=== PATIENT | female | born 1985 | race Caucasian/White ===

== ENCOUNTER 2018-05-06 21:42 | Emergency (ER) | payer MEDICAID ==
[2018-05-06] MEDS: ONDANSETRON HCL IV 4 MG/2 ML VIAL IV ONE (22:25)
[2018-05-06] MEDS: 0.9 % SODIUM CHLORIDE 1,000 ML BAG IV ONE (22:25)
[2018-05-06 22:30] LABS: URINE APPEARANCE CLEAR; URINE BILIRUBIN NEGATIVE (NEGATIVE); URINE BLOOD NEGATIVE (NEGATIVE); URINE COLOR YELLOW; URINE GLUCOSE (UA) NEGATIVE (NEGATIVE); URINE KETONE NEGATIVE (NEGATIVE); URINE LEUKOCYTE ESTERASE NEGATIVE (NEGATIVE); URINE NITRITE NEGATIVE (NEGATIVE); URINE PROTEIN NEGATIVE (NEGATIVE); URINE UROBILINOGEN 0.2 E.U./dL (0.20 - 1.00)
[2018-05-06 22:31] LABS: HCG,QUALITATIVE URINE NEGATIVE (NEGATIVE)
[2018-05-06 22:58] LABS: BLOOD UREA NITROGEN 11 mg/dL (6-20); CREATININE 0.6 mg/dL (0.5-0.9); EST GLOMERULAR FILTRATION RATE > 60 mL/min
[2018-05-06 22:59] LABS: TOTAL PROTEIN 7.6 g/dL (6.6-8.7)
[2018-05-06 23:01] LABS: BASO % 0.1 % (0-6); EOS % 0.9 % (0-6); GRAN % 78.7 % (47-80); HEMATOCRIT 34.4 % (35.0-47.0); HEMOGLOBIN 11.2 gm/dl (11.6-16.0); MEAN CELL VOLUME 87.5 fl (81-97); MEAN CORPUSCULAR HGB CONC 32.6 g/dl (32-36); MONO % 5.3 % (0-9); PLATELET COUNT 284 K/uL (130-400); RED BLOOD COUNT 3.93 M/uL (3.80-5.40); RED CELL DISTRIBUTION WIDTH 13.4 % (11.5-14.5); WHITE BLOOD COUNT W/O DIFF 7.7 K/uL (4.2-12.2)
[2018-05-06 23:01] LABS: GLUCOSE,RANDOM 90 mg/dL (74-109)
[2018-05-06 23:02] LABS: MEAN CORPUSCULAR HEMOGLOBIN 28.4 pg (27-33)
[2018-05-06 23:03] LABS: ALT/SGPT 13 U/L (<33); AST/SGOT 20 U/L (10.0-35.0)
[2018-05-06 23:04] LABS: ALB/GLOB RATIO 1.5 (1.1-1.8); ALBUMIN 4.5 g/dL (4.0-5.0); ALKALINE PHOSPHATASE 84 U/L (35-104); LIPASE 27 U/L (13-60)
--- NOTE | 2018-05-06 23:54 | Emergency Department Record ---
History of Present Illness - General Chief complaint: Nausea, Vomiting, Diarrhea Stated complaint: VOMITING AND DIARRHEA Time Seen by Provider: 05/06/18 22:18 Source: Patient Mode of Arrival: Ambulatory - History of Present Illness Onset/Timin -: Days(s) Description of Vomiting: Bilious Severity scale (1-10): 5 Quality: Aching, Cramping Consistency: Constant Improves with: None Worsens with: None Context: Sick contacts Associated Symptoms: Nausea/vomiting - Related Data Previous Rx's Medication Instructions Recorded Ondansetron [Zofran Odt] 4 mg PO Q8H #7 tab.rapdis 05/06/18 Allergies Allergy/AdvReac Type Severity Reaction Status Date / Time No Known Drug Allergies Allergy Verified 05/06/18 22:09 Travel Screening - Travel/Exposure Within Last 30 Days Have you traveled within the last 30 days?: No Past Medical History - SOCIAL HISTORY Smoking Status: Never smoker Alcohol Use: None Drug Use: None - RESPIRATORY Hx Respiratory Disorders: No - CARDIOVASCULAR Hx Cardio Disorders: No - NEURO Hx Neuro Disorders: No - GI Hx GI Disorders: No - Hx Genitourinary Disorders: No - ENDOCRINE Hx Endocrine Disorders: No - MUSCULOSKELETAL Hx Musculoskeletal Disorders: No - PSYCH Hx Psych Problems: No - HEMATOLOGY/ONCOLOGY Hx Hematology/Oncology Disorders: No Family Medical History Any Significant Family History?: No Course Vital Signs 05/06/18 05/06/18 22:09 23:20 Temperature 98.4 F 98.3 F Pulse Rate 86 Pulse Rate [ 96 H Pulse Ox Probe] Respiratory 20 12 Rate Blood Pressure 112/73 Blood Pressure 95/59 [Left Arm] Pulse Ox 98 99 - Reevaluation(s) Reevaluation #1: 05/06/18 23:48 pt feels better Medical Decision Making - Lab Data Result diagrams: 05/06/18 22:58 05/06/18 22:10 Lab Results 05/06/18 05/06/18 05/06/18 Range/Units 22:10 22:10 22:58 WBC 7.7 (4.2-12.2) K/uL RBC 3.93 (3.80-5.40) M/uL Hgb 11.2 L (11.6-16.0) gm/dl Hct 34.4 L (35.0-47.0) % MCV 87.5 (81-97) fl MCH 28.4 (27-33) pg MCHC 32.6 (32-36) g/dl RDW 13.4 (11.5-14.5) % Plt Count 284 (130-400) K/uL MPV 9.0 (7.4-10.4) fl Gran % 78.7 (47-80) % Lymphocytes % 15.0 L (16-45) % Monocytes % 5.3 (0-9) % Eosinophils % 0.9 (0-6) % Basophils % 0.1 (0-6) % Sodium 136 (136-145) mmol/L Potassium 3.5 (3.4-4.5) mmol/L Chloride 100 (98-107) mmol/L Carbon Dioxide 20.0 L (22-29) mmol/L Anion Gap 16.0 (7-16) BUN 11 (6-20) mg/dL Creatinine 0.6 (0.5-0.9) mg/dL Estimated GFR > 60 mL/min Random Glucose 90 (74-109) mg/dL Calcium 8.5 L (8.6-10.0) mg/dL Total Bilirubin 0.60 (0.2-1.0) mg/dL AST 20 (10.0-35.0) U/L ALT 13 (<33) U/L Alkaline Phosphatase 84 (35-104) U/L Total Protein 7.6 (6.6-8.7) g/dL Albumin 4.5 (4.0-5.0) g/dL Globulin 3.1 (1.4-4.8) gm/dL Albumin/Globulin Ratio 1.5 (1.1-1.8) Lipase 27 (13-60) U/L Urine Color Yellow Urine Appearance Clear Urine pH 6.0 (5.0-8.0) Ur Specific [place] >= 1.030 (1.002-1.030) Urine Protein Negative (NEGATIVE) Urine Glucose (UA) Negative (NEGATIVE) Urine Ketones Negative (NEGATIVE) Urine Blood Negative (NEGATIVE) Urine Nitrite Negative (NEGATIVE) Urine Bilirubin Negative (NEGATIVE) Urine Urobilinogen 0.2 (0.20 - 1.00) E.U./dL Ur Leukocyte Esterase Negative (NEGATIVE) Urine HCG, Qual Negative (NEGATIVE) Disposition Disposition: Discharge Clinical Impression: Nausea & vomiting Qualifiers: Vomiting type: unspecified Vomiting Intractability: non-intractable Qualified Code(s): R11.2 - Nausea with vomiting, unspecified Diarrhea Qualifiers: Diarrhea type: infectious Qualified Code(s): A09 - Infectious gastroenteritis and colitis, unspecified Disposition: Home, Self-Care Condition: (1) Good Instructions: Acute Nausea and Vomiting (ED), Acute Diarrhea (ED) Additional Instructions: follow up with family doctor. return sooner if worse. push fluids Prescriptions: Ondansetron [Zofran Odt] 4 mg PO Q8H #7 tab.rapdis Forms: Patient Portal Access, Return to Work/School Quality - Quality Measures Quality Measures: N/A - Blood Pressure Screening Does Patient Have Any of the Following: No Blood Pressure Classification: Normal BP Reading Systolic Measurement: 112 Diastolic Measurement: 73 Screening for High Blood Pressure: < Normal BP, F/U Not Required > [G8783]
== END 2018-05-07 00:08 | disposition home or self-care (01) ==
LOC: ER 21:42
DX: A09 Infectious gastroenteritis and colitis, unspecified (principal); R11.2 Nausea with vomiting, unspecified
CPT/HCPCS: 99284 ×2; 96374; 83690; 85025; 80053; 81003; 81025; J2405; J7030

== ENCOUNTER 2018-12-02 10:45 | Emergency (ER) | payer MEDICAID ==
--- NOTE | 2018-12-02 11:20 | Emergency Department Record ---
History of Present Illness - General Chief complaint: Nausea, Vomiting, Diarrhea Stated complaint: GETS SICK AFTER EATING/LOST WEIGHT Time Seen by Provider: 12/02/18 11:00 Source: Patient Mode of Arrival: Ambulatory Limitations: No limitations - History of Present Illness Initial comments: The patient is here due to not feeling well for about 3 months. She has felt that she has low energy and has had frequent loose stools only after eating for months. The patient denies any nausea, vomiting, fever, chills, AP, back pain, dysuria, or rashes. She also denies any blood in the stool. The patient additionally states her urine smells like sulfur at times. The patient has not seen her PCP for this due to the PCP being [facility]. complaint: Diarrhea Onset/Timin -: Month(s) Severity: Mild Severity scale (1-10): 1 Quality: Aching Consistency: Constant Improves with: None Worsens with: Eating - Related Data Home Medications Medication Instructions Recorded Confirmed Last Taken Cholecalciferol (Vitamin D3) 4,000 unit PO BID 12/02/18 12/02/18 1 Day Ago [Vitamin D3] ~12/01/18 Cyanocobalamin (Vitamin B-12) 5,000 mcg PO BID 12/02/18 12/02/18 1 Day Ago [Vitamin B-12] ~12/01/18 Allergies Allergy/AdvReac Type Severity Reaction Status Date / Time No Known Drug Allergies Allergy Verified 12/02/18 10:58 Travel Screening - Travel/Exposure Within Last 30 Days Have you traveled within the last 30 days?: No - Travel/Exposure Within Last Year Have you traveled outside the [place] in the last year?: No - Additonal Travel Details Have you been exposed to anyone with a communicable illness?: No - Travel Symptoms Symptom Screening: None Review of Systems Constitutional: Reports: Malaise. Denies: Chills, Fever Eyes: Denies: Eye discharge ENT: Denies: Congestion, Other Respiratory: Denies: Cough, Dyspnea Cardiovascular: Denies: Arrhythmia Endocrine: Reports: Fatigue Past Medical History - SOCIAL HISTORY Smoking Status: Never smoker Alcohol Use: None Drug Use: None - RESPIRATORY Hx Respiratory Disorders: No - CARDIOVASCULAR Hx Cardio Disorders: No - NEURO Hx Neuro Disorders: No - GI Hx GI Disorders: No - Hx Genitourinary Disorders: No - ENDOCRINE Hx Endocrine Disorders: No - MUSCULOSKELETAL Hx Musculoskeletal Disorders: No - PSYCH Hx Psych Problems: No - HEMATOLOGY/ONCOLOGY Hx Hematology/Oncology Disorders: No Family Medical History Any Significant Family History?: Yes Family Hx Comment (NOT TO BE USED IN PLACE OF ITEMS BELOW): Mother with GI issues. Physical Exam - General General Appearance: Alert, Oriented x3, Cooperative, No acute distress - Head Head exam: Atraumatic, Normocephalic, Normal inspection - Eye Eye exam: Normal appearance, PERRL - ENT Throat exam: Normal inspection. negative: Tonsillar erythema, Tonsillar exudate - Neck Neck exam: Normal inspection, Full ROM. negative: Tenderness - Respiratory Respiratory exam: Normal lung sounds bilaterally. negative: Respiratory distress - Cardiovascular Cardiovascular Exam: Regular rate, Normal rhythm, Normal heart sounds - GI/Abdominal GI/Abdominal exam: Soft, Normal bowel sounds. negative: Distended, Guarding, Hernia, Rebound, Rigid, Tenderness (The abdomen is very soft and nontender in all 4 quads.) - Extremities Extremities exam: Normal inspection, Full ROM, Normal capillary refill. negative: Tenderness - Neurological Neurological exam: Alert, Normal gait. negative: Abnormal gait, Motor sensory deficit Course Vital Signs 12/02/18 10:50 Temperature 98.7 F Pulse Rate 57 L Respiratory 18 Rate Blood Pressure 124/78 Pulse Ox 100 - Reevaluation(s) Reevaluation #1: The patient is doing very well at this time. She is resting comfortably and denies any pain or discomfort. I did explain to her that her workup has been normal here but she will need to see a PCP for further evaluation. 12/02/18 12:09 Medical Decision Making - Lab Data Result diagrams: 12/02/18 11:27 12/02/18 11:27 Disposition Disposition: Discharge Clinical Impression: Diarrhea Qualifiers: Diarrhea type: unspecified type Qualified Code(s): R19.7 - Diarrhea, un specified Disposition: Home, Self-Care Condition: (2) Stable Instructions: Chronic Diarrhea (ED) Additional Instructions: Please see a family doctor for further evaluation. Eat a very bland diet and please drink plenty of fluids. Return to the ER for any worsening symptoms. Forms: Patient Portal Access Time of Disposition: 12:11 Quality - Quality Measures Quality Measures: N/A - Blood Pressure Screening View Details: Yes Does Patient Have Any of the Following: No Blood Pressure Classification: Pre-Hypertensive BP Reading Systolic Measurement: 124 Diastolic Measurement: 78 Screening for High Blood Pressure: < Pre-Hypertensive BP, F/U Documented > [G8950] Pre-Hypertensive Follow-up Interventions: Referral to alternative/primary care provider.
[2018-12-02 11:32] LABS: ABSOLUTE NEUTROPHIL COUNT 5.95; BASO % 0.2 % (0-6); EOS % 0.9 % (0-6); GRAN % 68.9 % (47-80); HEMATOCRIT 39.9 % (35.0-47.0); HEMOGLOBIN 12.7 gm/dl (11.6-16.0); LYMPH % 23.7 % (16-45); MEAN CELL VOLUME 88.7 fl (81-97); MEAN CORPUSCULAR HEMOGLOBIN 28.2 pg (27-33); MEAN CORPUSCULAR HGB CONC 31.8 g/dl (32-36); MEAN PLATELET VOLUME 9.2 fl (7.4-10.4); MONO % 6.3 % (0-9); PLATELET COUNT 335 K/uL (130-400); RED CELL DISTRIBUTION WIDTH 13.7 % (11.5-14.5); WHITE BLOOD COUNT W/O DIFF 8.6 K/uL (4.2-12.2)
[2018-12-02 11:33] LABS: URINE APPEARANCE CLEAR; URINE BILIRUBIN NEGATIVE (NEGATIVE); URINE BLOOD NEGATIVE (NEGATIVE); URINE COLOR YELLOW; URINE GLUCOSE (UA) NEGATIVE (NEGATIVE); URINE KETONE 15 mg/dL (NEGATIVE); URINE LEUKOCYTE ESTERASE NEGATIVE (NEGATIVE); URINE NITRITE NEGATIVE (NEGATIVE); URINE PROTEIN NEGATIVE (NEGATIVE)
[2018-12-02 11:35] LABS: HCG,QUALITATIVE URINE NEGATIVE (NEGATIVE)
[2018-12-02 11:47] LABS: BLOOD UREA NITROGEN 10 mg/dL (6-20); CREATININE 0.5 mg/dL (0.5-0.9); EST GLOMERULAR FILTRATION RATE > 60 mL/min
[2018-12-02 11:48] LABS: TOTAL PROTEIN 7.4 g/dL (6.6-8.7)
[2018-12-02 11:50] LABS: GLUCOSE,RANDOM 78 mg/dL (74-109)
[2018-12-02 11:52] LABS: ALT/SGPT 14 U/L (<33)
[2018-12-02 11:53] LABS: ALB/GLOB RATIO 1.6 (1.1-1.8); ALBUMIN 4.5 g/dL (4.0-5.0); ALKALINE PHOSPHATASE 65 U/L (35-104); AST/SGOT 19 U/L (10.0-35.0)
== END 2018-12-02 12:19 | disposition home or self-care (01) ==
LOC: ER 10:45
DX: R19.7 Diarrhea, unspecified (principal); R11.2 Nausea with vomiting, unspecified; R82.90 Unspecified abnormal findings in urine
CPT/HCPCS: 80053; 81003; 81025; 82272; 85025; 86140; 89055; 99283

== ENCOUNTER 2019-01-25 03:17 | Emergency (ER) | payer MEDICAID ==
[2019-01-25] MEDS ORDERED: AMOXICILLIN 500MG CAPSULE PO ONE (03:44)
--- NOTE | 2019-01-25 03:50 | Emergency Department Record ---
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 Local pain to the ear without drainage. No fever. Feels the hearing in the ear is muffled. Pt also states her last normal period was in November. Thinks she is . Pt has 7 children. No vaginal bleeding or abd pain. Onset/Timin -: Days(s) Location: L ear Severity: Mild, Moderate Severity scale (1-10): 6 Quality: Dull Consistency: Constant, Getting worse Improves with: None Worsens with: None Context- Ear: Other Associated Symptoms: Hearing loss - Related Data Previous Rx's Medication Instructions Recorded Amoxicillin 1,000 mg PO BID 7 Days #28 capsule 01/25/19 Allergies Allergy/AdvReac Type Severity Reaction Status Date / Time No Known Drug Allergies Allergy Verified 01/25/19 03:34 Travel Screening - Travel/Exposure Within Last 30 Days Have you traveled within the last 30 days?: No - Travel/Exposure Within Last Year Have you traveled outside the [place] in the last year?: No - Additonal Travel Details Have you been exposed to anyone with a communicable illness?: No Review of Systems Constitutional: Denies: Chills, Fever Eyes: Denies: Eye pain, Photophobia ENT: Reports: As per HPI, Ear pain. Denies: Congestion Respiratory: Denies: Cough, Dyspnea Cardiovascular: Reports: Arrhythmia Endocrine: Denies: Fatigue Gastrointestinal: Denies: Abdominal pain, Diarrhea, Nausea, Vomiting Genitourinary: Reports: As per HPI, Abnormal menses Neurological: Denies: Confusion, Headache Psychiatric: Denies: Anxiety Past Medical History - SOCIAL HISTORY Smoking Status: Never smoker Alcohol Use: None - RESPIRATORY Hx Respiratory Disorders: No - CARDIOVASCULAR Hx Cardio Disorders: No - NEURO Hx Neuro Disorders: No - GI Hx GI Disorders: No - Hx Genitourinary Disorders: No - ENDOCRINE Hx Endocrine Disorders: No - MUSCULOSKELETAL Hx Musculoskeletal Disorders: No - PSYCH Hx Psych Problems: No - HEMATOLOGY/ONCOLOGY Hx Hematology/Oncology Disorders: No Family Medical History Any Significant Family History?: Yes Family Hx Comment (NOT TO BE USED IN PLACE OF ITEMS BELOW): Mother with GI issues. Brothers with hx of tubes and hx of deafness. Hx Cancer: Father, Mother, Brother/Sister Hx Diabetes: Father Hx Heart Disease: Father Physical Exam - General General Appearance: Alert, Oriented x3, Cooperative, No acute distress - Head Head exam: Atraumatic, Normocephalic - Eye Eye exam: PERRL, EOMI - ENT ENT exam: Mucous membranes moist Ear exam: Normal external inspection, Other (left TM retracted with erythema. No FB in canal. ) - Neck Neck exam: Normal inspection, Full ROM. negative: Lymphadenopathy - Respiratory Respiratory exam: Normal lung sounds bilaterally. negative: Respiratory distress - Cardiovascular Cardiovascular Exam: Regular rate, Normal rhythm - Neurological Neurological exam: Alert, Normal gait, Oriented X3 - Psychiatric Psychiatric exam: Normal affect, Normal mood - Skin Skin exam: Normal color. negative: Rash Course Vital Signs 01/25/19 03:22 Temperature 98.2 F Pulse Rate [ 64 Pulse Ox Probe] Respiratory 20 Rate Blood Pressure 115/73 [Left Arm] Pulse Ox 100 - Reevaluation(s) Reevaluation #1: 01/25/19 03:47 seen and exam. Left TM red and retracted. tender. Amox dose in ED. Pt instructed to follow with clinic or [employer] office for testing. Disposition Disposition: Discharge Clinical Impression: Otitis media, left Disposition: Home, Self-Care Condition: (1) Good Instructions: Otitis Media (ED) Additional Instructions: Follow up with Dr. Sunny Hanks or Family medicine regarding possible . Take Amoxil as instructed. Wear ear protection at home. Return to the ED as needed. Prescriptions: Amoxicillin 1,000 mg PO BID 7 Days #28 capsule Time of Disposition: 03:52 Quality - Quality Measures Quality Measures: N/A - Blood Pressure Screening Does Patient Have Any of the Following: No Blood Pressure Classification: Normal BP Reading Systolic Measurement: 115 Diastolic Measurement: 73 Screening for High Blood Pressure: < Normal BP, F/U Not Required > [G8783]
== END 2019-01-25 04:00 | disposition home or self-care (01) ==
LOC: ER 03:17
DX: H66.92 Otitis media, unspecified, left ear (principal)
CPT/HCPCS: 99283

== ENCOUNTER 2019-04-21 01:22 | Emergency (ER) | payer MEDICAID ==
--- NOTE | 2019-04-21 01:40 | Emergency Department Record ---
History of Present Illness - General Chief complaint: Vomiting Stated complaint: VOMMITING Time Seen by Provider: 04/21/19 01:24 Source: Patient Mode of Arrival: Ambulatory Limitations: No limitations - History of Present Illness Initial comments: 33 yo female presents with nausea and vomiting since the evening on . No diarrhea. No fever. No blood in the diarrhea or her last stool. She has some waves of cramps but states the abdominal pain is not too significant. She had a bowel movement 2-3 hours ago. She has had a cholecystectomy and C section. No cough, sore throat or congestion. MD complaint: Nausea, Vomiting -: Days(s) Description of Vomiting: Bilious Associated Abdominal Pain: No Radiation: None Quality: Cramping Consistency: Intermittent Improves with: None Worsens with: Eating Context: Sick contacts Associated Symptoms: Cough, Nausea/vomiting - Related Data Previous Rx's Medication Instructions Recorded Ondansetron [Zofran Odt] 4 mg PO Q8H #15 tab.rapdis 04/21/19 Allergies Allergy/AdvReac Type Severity Reaction Status Date / Time No Known Drug Allergies Allergy Verified 01/25/19 03:34 Travel Screening - Travel/Exposure Within Last 30 Days Have you traveled within the last 30 days?: No - Travel Symptoms Symptom Screening: Vomiting Review of Systems Constitutional: Denies: Chills, Fever, Malaise, Weakness Eyes: Denies: Eye discharge, Eye pain, Vision change ENT: Denies: Congestion, Throat pain Respiratory: Denies: Cough, Dyspnea Cardiovascular: Denies: Chest pain, Palpitations, Syncope Endocrine: Denies: Fatigue, Polydipsia, Polyuria Gastrointestinal: Reports: Nausea, Vomiting. Denies: Abdominal pain, Constipation, Diarrhea, Hematemesis, Hematochezia, Melena Genitourinary: Denies: Dysuria, Frequency, Urgency Musculoskeletal: Denies: Arthralgia, Back pain, Neck pain Skin: Denies: Bruising, Change in color, Rash Neurological: Denies: Headache Psychiatric: Denies: Anxiety Hematological/Lymphatic: Denies: Easy bleeding, Easy bruising Past Medical History - SOCIAL HISTORY Smoking Status: Never smoker - RESPIRATORY Hx Respiratory Disorders: No - CARDIOVASCULAR Hx Cardio Disorders: No - NEURO Hx Neuro Disorders: No - GI Hx GI Disorders: No - Hx Genitourinary Disorders: No - ENDOCRINE Hx Endocrine Disorders: No - MUSCULOSKELETAL Hx Musculoskeletal Disorders: No - PSYCH Hx Psych Problems: No - HEMATOLOGY/ONCOLOGY Hx Hematology/Oncology Disorders: No Family Medical History Family Hx Comment (NOT TO BE USED IN PLACE OF ITEMS BELOW): Mother with GI issues. Brothers with hx of tubes and hx of deafness. Hx Cancer: Father, Mother, Brother/Sister Hx Diabetes: Father Hx Heart Disease: Father Physical Exam - General General Appearance: Alert, Oriented x3, Cooperative, No acute distress Limitations: No limitations - Head Head exam: Atraumatic, Normal inspection - Eye Eye exam: Normal appearance, PERRL. negative: Conjunctival injection, Scleral icterus - ENT ENT exam: Normal exam, Mucous membranes moist Ear exam: Normal external inspection Nasal Exam: Normal inspection Mouth exam: Normal external inspection - Neck Neck exam: Normal inspection - Respiratory Respiratory exam: Normal lung sounds bilaterally. negative: Respiratory distress - Cardiovascular Cardiovascular Exam: Regular rate, Normal rhythm, Normal heart sounds - GI/Abdominal GI/Abdominal exam: Soft. negative: Distended, Guarding, Tenderness - Rectal Rectal exam: Deferred - exam: Deferred - Extremities Extremities exam: Normal inspection - Back Back exam: Denies: CVA tenderness (R), CVA tenderness (L) - Neurological Neurological exam: Alert, Oriented X3 - Psychiatric Psychiatric exam: Normal affect, Normal mood - Skin Skin exam: Dry, Intact, Normal color, Warm Course Vital Signs 04/21/19 01:30 Temperature 98.0 F Pulse Rate [ 86 Left] Respiratory 16 Rate Blood Pressure 103/73 [Left Arm] Pulse Ox 97 - Reevaluation(s) Reevaluation #1: 04/21/19 02:24 The labs were reviewed No acute abnormalities HCG is negative 04/21/19 02:34 The patient is doing much better No vomiting or pain in the ED We discussed home care, reasons to return to the ED Medical Decision Making - Lab Data Result diagrams: 04/21/19 01:50 04/21/19 01:50 Disposition Disposition: Discharge Clinical Impression: Nausea and vomiting Qualifiers: Vomiting type: unspecified Vomiting Intractability: unspecified Qualified Code(s): R11.2 - Nausea with vomiting, unspecified Disposition: Home, Self-Care Condition: (1) Good Instructions: Acute Nausea and Vomiting (ED) Additional Instructions: Review this ER visit and the tests performed with your family doctor Call your doctor for the next available follow up appointment Return to the ER for a recheck if worse, any new concerns or questions Take the prescriptions provided as directed Prescriptions: Ondansetron [Zofran Odt] 4 mg PO Q8H #15 tab.rapdis Forms: Patient Portal Access Time of Disposition: 02:37 Quality - Quality Measures Quality Measures: N/A - Blood Pressure Screening Does Patient Have Any of the Following: No Blood Pressure Classification: Normal BP Reading Systolic Measurement: 90 Diastolic Measurement: 56 Screening for High Blood Pressure: < Normal BP, F/U Not Required > [G8783]
[2019-04-21] MEDS ORDERED: ONDANSETRON HCL IV 4 MG/2 ML VIAL IVP ONE (01:49)
[2019-04-21] MEDS ORDERED: 0.9 % SODIUM CHLORIDE 1,000 ML BAG IV ONE (01:49)
[2019-04-21 02:02] LABS: ABSOLUTE NEUTROPHIL COUNT 4.66; BASO % 0.2 % (0-6); EOS % 2.8 % (0-6); GRAN % 72.7 % (47-80); HEMATOCRIT 41.1 % (35.0-47.0); HEMOGLOBIN 12.9 gm/dl (11.6-16.0); MEAN CELL VOLUME 89.5 fl (81-97); MEAN CORPUSCULAR HEMOGLOBIN 28.1 pg (27-33); MEAN CORPUSCULAR HGB CONC 31.4 g/dl (32-36); MEAN PLATELET VOLUME 8.7 fl (7.4-10.4); MONO % 6.3 % (0-9); PLATELET COUNT 314 K/uL (130-400); RED BLOOD COUNT 4.59 M/uL (3.80-5.40); RED CELL DISTRIBUTION WIDTH 13.4 % (11.5-14.5); WHITE BLOOD COUNT W/O DIFF 6.4 K/uL (4.2-12.2)
[2019-04-21 02:06] LABS: URINE APPEARANCE CLEAR; URINE BILIRUBIN NEGATIVE (NEGATIVE); URINE BLOOD SMALL (NEGATIVE); URINE COLOR YELLOW; URINE GLUCOSE (UA) NEGATIVE (NEGATIVE); URINE KETONE NEGATIVE (NEGATIVE); URINE LEUKOCYTE ESTERASE NEGATIVE (NEGATIVE); URINE NITRITE NEGATIVE (NEGATIVE); URINE PROTEIN NEGATIVE (NEGATIVE); URINE UROBILINOGEN 0.2 E.U./dL (0.20 - 1.00)
[2019-04-21 02:14] LABS: BLOOD UREA NITROGEN 15 mg/dL (6-20); CREATININE 0.5 mg/dL (0.5-0.9); EST GLOMERULAR FILTRATION RATE > 60 mL/min
[2019-04-21 02:15] LABS: TOTAL PROTEIN 7.1 g/dL (6.6-8.7)
[2019-04-21 02:17] LABS: GLUCOSE,RANDOM 84 mg/dL (74-109)
[2019-04-21 02:20] LABS: ALB/GLOB RATIO 1.4 (1.1-1.8); ALBUMIN 4.1 g/dL (4.0-5.0); ALKALINE PHOSPHATASE 66 U/L (35-104); ALT/SGPT 13 U/L (<33); AST/SGOT 20 U/L (10.0-35.0)
[2019-04-21 02:23] LABS: URINE BACTERIA FEW; URINE MUCUS LIGHT; URINE RBC 0 - 2 (NONE SEEN); URINE WBC 0 - 2 (0-2/hpf)
[2019-04-21 02:24] LABS: HCG,QUALITATIVE URINE NEGATIVE (NEGATIVE)
[2019-04-21] MEDS ORDERED: ONDANSETRON 4 MG ODT TABLET SL ONE (02:32)
== END 2019-04-21 02:57 | disposition home or self-care (01) ==
LOC: ER 01:22
DX: R11.2 Nausea with vomiting, unspecified (principal); R05 Cough
CPT/HCPCS: 80053; 81001; 81025; 85025; 96361; 96374; 99284; J2405; J7030

== ENCOUNTER 2019-05-04 00:39 | Emergency (ER) | payer MEDICAID ==
[2019-05-04 01:08] LABS: INFLUENZA A NEGATIVE (NEGATIVE); INFLUENZA B POSITIVE (NEGATIVE)
[2019-05-04] MEDS ORDERED: ACETAMINOPHEN 500 MG TABLET PO ONE (01:13)
[2019-05-04] MEDS ORDERED: IBUPROFEN 600 MG TABLET PO ONE (01:13)
--- NOTE | 2019-05-04 01:18 | Emergency Department Record ---
History of Present Illness - General Chief complaint: Flu Like Symptoms Stated complaint: EXPOSURE TO FLU B Time Seen by Provider: 05/04/19 00:53 Source: Patient Mode of Arrival: Ambulatory Limitations: No limitations - History of Present Illness Initial comments: pt has fever, myalgias, cough, congestion, sore throat for 3-4 days, her children have influenza B MD Complaint: Generalized weakness -: Days(s) Consistency: Constant Associated Symptoms: Fever/chills, Myalgias - Elaine Coma Scale Eye Response: (4) Open spontaneously Motor Response: (6) Obeys commands Verbal Response: (5) Oriented Elaine Total: 15 - Related Data Previous Rx's Medication Instructions Recorded Ondansetron [Zofran Odt] 4 mg PO Q8H #15 tab.rapdis 04/21/19 Allergies Allergy/AdvReac Type Severity Reaction Status Date / Time No Known Drug Allergies Allergy Verified 01/25/19 03:34 Travel Screening - Travel/Exposure Within Last 30 Days Have you traveled within the last 30 days?: No Review of Systems Reviewed: No additional complaints except as noted below Constitutional: Reports: As per HPI. Denies: Chills, Fever, Malaise, Night sweats, Weakness, Weight change Eyes: Reports: As per HPI. Denies: Eye discharge, Eye pain, Photophobia, Vision change ENT: Reports: As per HPI. Denies: Congestion, Dental pain, Ear pain, Epistaxis, Hearing loss, Throat pain Respiratory: Reports: As per HPI. Denies: Cough, Dyspnea, Hemoptysis, Stridor, Wheezes Cardiovascular: Reports: As per HPI. Denies: Arrhythmia, Chest pain, Dyspnea on exertion, Edema, Murmurs, Orthopnea, Palpitations, Paroxysmal nocturnal dyspnea, Rheumatic Fever, Syncope Endocrine: Reports: As per HPI. Denies: Fatigue, Heat or cold intolerance, Polydipsia, Polyuria Gastrointestinal: Reports: As per HPI. Denies: Abdominal pain, Constipation, Diarrhea, Hematemesis, Hematochezia, Melena, Nausea, Vomiting Genitourinary: Reports: As per HPI. Denies: Abnormal menses, Discharge, Dyspareunia, Dysuria, Frequency, Hematuria, Incontinence, Retention, Urgency Musculoskeletal: Reports: As per HPI. Denies: Arthralgia, Back pain, Gout, Joint swelling, Myalgia, Neck pain Skin: Reports: As per HPI. Denies: Bruising, Change in color, Change in hair/nails, Lesions, Pruritus, Rash Neurological: Reports: As per HPI. Denies: Abnormal gait, Confusion, Headache, Numbness, Paresthesias, Seizure, Tingling, Tremors, Vertigo, Weakness Psychiatric: Reports: As per HPI. Denies: Anxiety, Auditory hallucinations, Depression, Homicidal thoughts, Suicidal thoughts, Visual hallucinations Hematological/Lymphatic: Reports: As per HPI. Denies: Anemia, Blood Clots, Easy bleeding, Easy bruising, Swollen glands Past Medical History - SOCIAL HISTORY Smoking Status: Never smoker Alcohol Use: None Drug Use: None - RESPIRATORY Hx Respiratory Disorders: No - CARDIOVASCULAR Hx Cardio Disorders: No - NEURO Hx Neuro Disorders: No - GI Hx GI Disorders: No - Hx Genitourinary Disorders: No - ENDOCRINE Hx Endocrine Disorders: No - MUSCULOSKELETAL Hx Musculoskeletal Disorders: No - PSYCH Hx Psych Problems: No - HEMATOLOGY/ONCOLOGY Hx Hematology/Oncology Disorders: No Family Medical History Any Significant Family History?: Yes Family Hx Comment (NOT TO BE USED IN PLACE OF ITEMS BELOW): Mother with GI issues. Brothers with hx of tubes and hx of deafness. Hx Cancer: Father, Mother, Brother/Sister Hx Diabetes: Father Hx Heart Disease: Father Physical Exam - General General Appearance: Alert, Oriented x3, Cooperative, No acute distress - Head Head exam: Normal inspection - Eye Eye exam: Normal appearance, PERRL, EOMI Pupils: Normal accommodation - ENT ENT exam: Normal exam, Mucous membranes moist, Normal external ear exam, Normal orophraynx Ear exam: Normal external inspection. negative: External canal tenderness Nasal Exam: Normal inspection. negative: Discharge, Sinus tenderness Mouth exam: Normal external inspection, Tongue normal Teeth exam: Normal inspection. negative: Dental caries Throat exam: Normal inspection. negative: Tonsillar erythema, Tonsillar exudate - Neck Neck exam: Normal inspection, Full ROM. negative: Tenderness - Respiratory Respiratory exam: Normal lung sounds bilaterally. negative: Respiratory distress - Cardiovascular Cardiovascular Exam: Regular rate, Normal rhythm, Normal heart sounds - GI/Abdominal GI/Abdominal exam: Soft, Normal bowel sounds. negative: Tenderness - Rectal Rectal exam: Deferred - exam: Deferred - Extremities Extremities exam: Normal inspection, Full ROM, Normal capillary refill. negative: Tenderness - Back Back exam: Reports: Normal inspection, Full ROM. Denies: Muscle spasm, Rash noted, Tenderness - Neurological Neurological exam: Alert, CN II-XII intact, Normal gait, Oriented X3 - Psychiatric Psychiatric exam: Normal affect, Normal mood - Skin Skin exam: Dry, Intact, Normal color, Warm Course Vital Signs 05/04/19 00:46 Temperature 100.5 F H Pulse Rate [ 85 Left] Respiratory 18 Rate Blood Pressure 119/70 [Left] Pulse Ox 97 Medical Decision Making - Lab Data Lab Results 05/04/19 Range/Units 00:45 Influenza Type A Ag Negative (NEGATIVE) Influenza Type B Ag Positive H (NEGATIVE) Disposition Disposition: Discharge Clinical Impression: Influenza B Disposition: Home, Self-Care Condition: (1) Good Instructions: Influenza (ED) Additional Instructions: follow up with family doctor. return sooner if worse. tylenol and motrin as needed Forms: Patient Portal Access, Return to Work/School Quality - Quality Measures Quality Measures: N/A - Blood Pressure Screening Does Patient Have Any of the Following: No Blood Pressure Classification: Normal BP Reading Systolic Measurement: 119 Diastolic Measurement: 70 Screening for High Blood Pressure: < Normal BP, F/U Not Required > [G8783]
== END 2019-05-04 01:32 | disposition home or self-care (01) ==
LOC: ER 00:39
DX: J10.1 Influenza due to other identified influenza virus with other respiratory manifestations (principal)
CPT/HCPCS: 87400; 99283

== ENCOUNTER 2019-05-06 15:58 | Emergency (ER) | payer MEDICAID ==
[2019-05-06] MEDS ORDERED: 0.9 % SODIUM CHLORIDE 1,000 ML BAG IV ONE (16:39)
--- NOTE | 2019-05-06 16:43 | Emergency Department Record ---
History of Present Illness - General Chief Complaint: Dizziness Stated Complaint: DIZINESS/ Time Seen by Provider: 05/06/19 16:19 Source: Patient, Family Mode of Arrival: Ambulatory - History of Present Illness Initial Comments: 33 yo female presents with weakness, lightheaded, dizzy, and fatigued. She was diagnosed with influenza B on 05/04. She still has some cough, congestion and minimal sore throat. The last fever was about 24 hours ago. No nausea, vomiting or diarrhea. She feels light headed with getting up and being active. No rash. No headache. No vision changes. MD Complaint: Lightheadedness, Other Onset/Timin -: Days(s) Description: Lightheadedness History of Same: Yes History of Trauma: No Improves With: Nothing Worsens With: Nothing Associated Symptoms: Denies other symptoms - Rhod[place] Coma Scale Eye Response: (4) Open spontaneously Motor Response: (6) Obeys commands Verbal Response: (5) Oriented Elaine Total: 15 - Related Data Allergies Allergy/AdvReac Type Severity Reaction Status Date / Time No Known Drug Allergies Allergy Verified 05/06/19 16:26 Travel Screening - Travel/Exposure Within Last 30 Days Have you traveled within the last 30 days?: No - Travel/Exposure Within Last Year Have you traveled outside the [place] in the last year?: No - Additonal Travel Details Have you been exposed to anyone with a communicable illness?: No - Travel Symptoms Symptom Screening: None Review of Systems Constitutional: Reports: Chills, Fever, Malaise, Weakness Eyes: Denies: Eye discharge ENT: Reports: Congestion, Throat pain Respiratory: Reports: Cough. Denies: Dyspnea, Hemoptysis Cardiovascular: Denies: Chest pain, Dyspnea on exertion, Palpitations, Syncope Endocrine: Denies: Fatigue Gastrointestinal: Reports: Nausea. Denies: Abdominal pain, Diarrhea, Vomiting Genitourinary: Denies: Dysuria, Urgency Musculoskeletal: Reports: Myalgia. Denies: Arthralgia, Back pain, Neck pain Skin: Denies: Bruising, Change in color, Rash Neurological: Reports: Weakness. Denies: Headache, Numbness Psychiatric: Denies: Anxiety Hematological/Lymphatic: Denies: Easy bleeding, Easy bruising Past Medical History - SOCIAL HISTORY Smoking Status: Never smoker Alcohol Use: None Drug Use: None - RESPIRATORY Hx Respiratory Disorders: No - CARDIOVASCULAR Hx Cardio Disorders: No - NEURO Hx Neuro Disorders: No - GI Hx GI Disorders: No - Hx Genitourinary Disorders: No - ENDOCRINE Hx Endocrine Disorders: No - MUSCULOSKELETAL Hx Musculoskeletal Disorders: No - PSYCH Hx Psych Problems: No - HEMATOLOGY/ONCOLOGY Hx Hematology/Oncology Disorders: No Family Medical History Any Significant Family History?: Yes Family Hx Comment (NOT TO BE USED IN PLACE OF ITEMS BELOW): Mother with GI issues. Brothers with hx of tubes and hx of deafness. Hx Cancer: Father, Mother, Brother/Sister Hx Diabetes: Father Hx Heart Disease: Father Physical Exam - General General Appearance: Alert, Oriented x3, Cooperative, No acute distress Limitations: No limitations - Head Head exam: Atraumatic, Normal inspection - Eye Eye exam: Normal appearance, PERRL. negative: Conjunctival injection, Scleral icterus - ENT ENT exam: Normal exam, Mucous membranes moist Ear exam: Normal external inspection Nasal Exam: Discharge Mouth exam: Normal external inspection Teeth exam: Normal inspection Throat exam: Tonsillar erythema. negative: Tonsillomegaly, Tonsillar exudate, R peritonsillar mass, L peritonsillar mass - Neck Neck exam: Normal inspection, Full ROM. negative: Lymphadenopathy, Meningismus, Tenderness - Respiratory Respiratory exam: Normal lung sounds bilaterally. negative: Rhonchi, Stridor, Wheezes - Cardiovascular Cardiovascular Exam: Regular rate, Normal rhythm, Normal heart sounds - GI/Abdominal GI/Abdominal exam: Soft. negative: Tenderness - Rectal Rectal exam: Deferred - exam: Deferred - Extremities Extremities exam: Normal inspection. negative: Tenderness - Back Back exam: Denies: CVA tenderness (R), CVA tenderness (L), Paraspinal tenderness, Tenderness - Neurological Neurological exam: Alert, CN II-XII intact, Normal gait, Oriented X3. negative: Abnormal gait, Altered, Motor sensory deficit - Psychiatric Psychiatric exam: Normal affect, Normal mood - Skin Skin exam: Dry, Intact, Normal color, Warm Course Vital Signs 05/06/19 16:28 Temperature 98.9 F Pulse Rate 66 Respiratory 18 Rate Blood Pressure 107/71 Pulse Ox 99 - Reevaluation(s) Reevaluation #1: 05/06/19 16:43 The vitals were reviewed No acute abnormality. 05/06/19 17:09 The CBC is normal 05/06/19 18:17 The CMP is normal We discussed the results of the tests and questions were answered at the time of discharge. The patient is doing well and is comfortable with DC. We discussed at length reasons to immediately return to the ED as well as close follow up. The patient will call the PCP for close follow up of this ED visit to review this visit and the tests performed DC vitals were reviewed. Medical Decision Making - Lab Data Result diagrams: 05/06/19 16:45 05/06/19 16:45 Disposition Disposition: Discharge Clinical Impression: Influenza B Disposition: Home, Self-Care Condition: (1) Good Instructions: Influenza (ED), Dizziness (ED) Forms: Patient Portal Access Time of Disposition: 18:18 Quality - Quality Measures Quality Measures: N/A - Blood Pressure Screening Does Patient Have Any of the Following: No Blood Pressure Classification: Normal BP Reading Systolic Measurement: 107 Diastolic Measurement: 71 Screening for High Blood Pressure: < Normal BP, F/U Not Required > [G8783]
[2019-05-06 16:56] LABS: ABSOLUTE NEUTROPHIL COUNT 1.95; BASO % 0.2 % (0-6); EOS % 1.7 % (0-6); GRAN % 47.7 % (47-80); HEMATOCRIT 38.3 % (35.0-47.0); HEMOGLOBIN 12.1 gm/dl (11.6-16.0); LYMPH % 43.8 % (16-45); MEAN CORPUSCULAR HEMOGLOBIN 27.8 pg (27-33); MEAN CORPUSCULAR HGB CONC 31.6 g/dl (32-36); MEAN PLATELET VOLUME 8.8 fl (7.4-10.4); MONO % 6.6 % (0-9); PLATELET COUNT 234 K/uL (130-400); RED BLOOD COUNT 4.35 M/uL (3.80-5.40); RED CELL DISTRIBUTION WIDTH 13.5 % (11.5-14.5); WHITE BLOOD COUNT W/O DIFF 4.1 K/uL (4.2-12.2)
[2019-05-06 17:08] LABS: BLOOD UREA NITROGEN 5 mg/dL (6-20); CREATININE 0.5 mg/dL (0.5-0.9); EST GLOMERULAR FILTRATION RATE > 60 mL/min
[2019-05-06 17:11] LABS: GLUCOSE,RANDOM 126 mg/dL (74-109)
== END 2019-05-06 18:52 | disposition home or self-care (01) ==
LOC: ER 15:58
DX: J10.1 Influenza due to other identified influenza virus with other respiratory manifestations (principal); R53.1 Weakness; R42 Dizziness and giddiness
CPT/HCPCS: 80048; 84703; 85025; 99284